=== PATIENT | male | born 1980 | race Hispanic/Latino ===

== ENCOUNTER 2018-06-12 20:07 | Emergency (ER) | payer MEDICAID ==
[2018-06-12 20:39] VITALS: BMI 23.2
--- NOTE | 2018-06-12 20:40 | ED PDOC ---
Arrival/HPI - General Time Seen by Provider: 06/12/18 20:20 Historian: Patient - History of Present Illness Narrative History of Present Illness (Text): 06/12/18 20:37 37 year old male, with a Past medical history of hepatitis C and heroin addiction, who presents to the Emergency department brought in by [facility] for psychiatric clearance. Patient endorses taking methadone, but denies any fever, chills, vomiting, generalized pain, suicidal ideation, homicidal ideation, trauma, injury, or any other complaints. Time/Duration: 24 hours Symptom Onset: Gradual Symptom Course: Unchanged Activities at Onset: Light Context: Home Past Medical History - Provider Review Nursing Documentation Reviewed: Yes - Infectious Disease Hx of Infectious Diseases: None - Tetanus Immunization Tetanus Immunization: Unknown - Past Medical History Past Medical History: No Previous - Musculoskeletal/Rheumatological Hx Falls: No - Psychiatric Hx Substance Use: No - Past Surgical History Past Surgical History: No Previous - Anesthesia Hx Anesthesia: No Hx Anesthesia Reactions: No Hx Malignant Hyperthermia: No - Suicidal Assessment Feels Threatened In Home Enviroment: No Family/Social History - Physician Review Nursing Documentation Reviewed: Yes Family/Social History: Unknown Family HX Smoking Status: Current Some Days Smoker Hx Alcohol Use: No Hx Substance Use: No Allergies/Home Meds Allergies/Adverse Reactions: Allergies zolpidem [From Ambien] Adverse Reaction (Verified 06/12/18 20:29) RASH Home Medications: Home Meds Medication Instructions Recorded Confirmed Dextroamphetamine/Amphetamine 1 tab PO DAILY 05/02/17 05/02/17 [Adderall 30 mg Tablet] Review of Systems - Physician Review All systems were reviewed & negative as marked: Yes - Review of Systems Constitutional: absent: Fevers Respiratory: absent: SOB, Cough Cardiovascular: absent: Chest Pain Gastrointestinal: absent: Abdominal Pain, Nausea, Vomiting Musculoskeletal: absent: Back Pain, Neck Pain Skin: absent: Rash Neurological: absent: Headache, Dizziness Psychiatric: absent: Suicidal Ideation Physical Exam Vital Signs Reviewed: Yes Appearance: Positive for: Well-Appearing, Non-Toxic, Comfortable Pain Distress: None Mental Status: Positive for: Alert and Oriented X 3 - Systems Exam Head: Present: Atraumatic, Normocephalic Pupils: Present: PERRL Extroacular Muscles: Present: EOMI Conjunctiva: Present: Normal Mouth: Present: Moist Mucous Membranes Neck: Present: Normal Range of Motion Respiratory/Chest: Present: Clear to Auscultation, Good Air Exchange. No: Respiratory Distress, Accessory Muscle Use Cardiovascular: Present: Regular Rate and Rhythm, Normal S1, S2. No: Murmurs Abdomen: No: Tenderness, Distention, Peritoneal Signs Back: Present: Normal Inspection Upper Extremity: Present: Normal Inspection. No: Cyanosis, Edema Lower Extremity: Present: Normal Inspection. No: Edema Neurological: Present: GCS=15, Speech Normal Skin: Present: Warm, Dry, Normal Color. No: Rashes Psychiatric: Present: Alert, Oriented x 3, Normal Insight, Normal Concentration, Anxious Medical Decision Making ED Course and Treatment: 06/12/18 20:36 Impression: 38 year old male presents to the ED brought in by [facility] for psychiatric clearance. Differential Diagnosis included but are not limited to: Plan: -- Reassess and disposition Prior Visits: Notes and results from previous visits were reviewed. Progress Notes: 06/12/18 20:42 Spoke with mother, states that patient went to Methadone clinic and took his dose of Methadone. Patient has no medical complaints, he is medically cleared, is still pending PES evaluation. 06/12/18 22:13 Patient is seen and evaluated by crisis. As per crisis evaluation, decision made for outpatient follow up as per Dr. Valdivia. Patient had mentioned to PES that he is having chest discomfort and that he is not anxious. EKG : NSR at 68 bpm, normal axis, no acute ST changes. Patient is now stating that he has SI. PES discussed case with Dr. Valdivia, patient is still cleared by psych for d/c. Patient is medically and psychiatrically cleared to be d/c under police custody and for incarceration. - PA / [employer] REPRESENTATIVE / Resident Statement VIGNESH has reviewed & agrees with the documentation as recorded. VIGNESH has examined the patient and agrees with the treatment plan. - Scribe Statement The provider has reviewed the documentation as recorded by the Elisabeth Lai All medical record entries made by the Elisabeth were at my direction and personally dictated by me. I have reviewed the chart and agree that the record accurately reflects my personal performance of the history, physical exam, medical decision making, and the department course for this patient. I have also personally directed, reviewed, and agree with the discharge instructions and disposition. Disposition/Present on Arrival - Present on Arrival Any Indicators Present on Arrival: No History of DVT/PE: No History of Uncontrolled Diabetes: No Urinary Catheter: No History Surgical Site Infection Following: None - Disposition Have Diagnosis and Disposition been Completed?: Yes Diagnosis: Medical clearance for incarceration Disposition: RELEASED IN POLICE CUSTODY Disposition Time: 22:30 Patient Plan: Discharge Patient Problems: Current Active Problems Problem Status Onset Medical clearance for incarceration Acute Condition: STABLE Additional Instructions: Patient is medically and psychiatrically cleared to be discharge under police custody and/or for incarceration.
[2018-06-12 22:29] VITALS: BP 113/67; PULSE 78; RESP 20; TEMP 98.4; O2SAT 96
--- NOTE | 2018-06-13 10:22 | CARD ---
APPROVED REPORT Date of service: 06/12/2018 EKG Measurement Heart [id number] <Conclusion> Normal sinus rhythm Normal ECG
--- NOTE | 2018-06-13 12:58 | CP.PCM.PCO ---
Addendum Addendum: 06/13/18 12:56 at the time of initial evaluation pt denied SI/HI, denied delusions or hallucinations pt verbalized thoughts of harming himself only after facing incarceration secondary gain/malingering cannot be excluded it was advised for the pt to be seen by psychiatrist in correctional facility, 1:1 if needed
== END 2018-06-12 22:40 ==
LOC: ED 20:07
DX: Z02.89 Encounter for other administrative examinations (principal)